=== PATIENT | female | born 1975 | race Caucasian/White ===

== ENCOUNTER 2017-08-02 09:17 | Emergency (ER) | payer OTHER ==
[2017-08-02] MEDS: KETOROLAC TROMETHAMINE 60 MG/2 ML (IM) VIAL IM (10:17)
== END 2017-08-02 10:34 | disposition home or self-care (01) ==
LOC: NEPD 09:17
DX: M54.31 Sciatica, right side (principal); R20.0 Anesthesia of skin; Z88.0 Allergy status to penicillin
CPT/HCPCS: 96372; 99284-25